=== PATIENT | male | born 1975 | race Caucasian/White ===

== ENCOUNTER 2024-02-21 20:28 | Inpatient (IN) | payer OTHER ==
[2024-02-21] MEDS ORDERED: ACETAMINOPHEN INJECTION 100 ML IVPB ONE (22:20)
[2024-02-21] MEDS: ACETAMINOPHEN 1000 MG/100 ML BAG IVPB ONE (22:23)
[2024-02-21 22:32] LABS: BASO % 0.4 % (0-2.0); HEMATOCRIT 37.6 % (35.4-49); HEMOGLOBIN 13.1 GM/dL (11.7-16.9); LYMPH % 3.5 % (8-40); MCH 29.6 pg (25.7-33.7); MCHC 34.8 g/dl (32.0-35.9); MEAN PLT VOLUME 8.7 fl (7.5-11.1); NEUT % 87.1 % (42.8-82.8); PLATELET COUNT 279 10^3/uL (134-434); RBC 4.43 M/mm3 (4.00-5.60); RDW 13.8 % (11.9-15.9); WHITE BLOOD COUNT 13.7 K/mm3 (4.0-10.0)
[2024-02-21 22:34] LABS: EPI CELLS 11 /uL (0-25.1); HYALINE CASTS 13 /uL (0-3.1); URINE APPEARANCE CLOUDY; URINE BACTERIA >9,000 /uL (0-1359); URINE BILIRUBIN 1+ (NEGATIVE); URINE COLOR DK YELLOW; URINE GLUCOSE (UA) NEGATIVE (NEGATIVE); URINE KETONE TRACE (NEGATIVE); URINE LEUK ESTERASE 1+ (NEGATIVE); URINE NITRITE POSITIVE (NEGATIVE); URINE PROTEIN 2+ (NEGATIVE); URINE RBC 45 /uL (0-23.9); URINE UROBILINOGEN 4.0 E.U/dl mg/dL (0.2-1.0); URINE WBC 189 /uL (0-25.8)
[2024-02-21 22:37] LABS: INR 1.37 (0.83-1.09); PROTHROMBIN TIME (PATIENT) 15.3 SEC (9.7-13.0)
[2024-02-21 22:49] LABS: POTASSIUM 3.8 mmol/L (3.5-5.1)
[2024-02-21 22:52] LABS: ALBUMIN 3.1 g/dl (3.4-5.0); BLOOD UREA NITROGEN 9.2 mg/dL (7-18)
[2024-02-21 22:54] LABS: CREATININE 0.7 mg/dL (0.55-1.3)
[2024-02-21 22:56] LABS: BILIRUBIN,TOTAL 0.7 mg/dL (0.2-1); TOT PROT 7.3 g/dl (6.4-8.2)
[2024-02-22] MEDS ORDERED: MORPHINE SULFATE 2 MG/ML SYRINGE ONE (03:45)
[2024-02-22] MEDS: MORPHINE SULFATE 2 MG/ML SYRINGE IVPUSH PRN (04:02)
[2024-02-22] MEDS ORDERED: ACETAMINOPHEN 325 MG TABLET (FP) ONE (04:03)
[2024-02-22] MEDS: ACETAMINOPHEN 325 MG TABLET (FP) PO PRN (04:07)
[2024-02-22 06:34] LABS: POTASSIUM 3.7 mmol/L (3.5-5.1)
[2024-02-22 06:38] LABS: CALCIUM 8.2 mg/dL (8.5-10.1)
[2024-02-22 06:39] LABS: ALBUMIN 3.1 g/dl (3.4-5.0); BLOOD UREA NITROGEN 8.3 mg/dL (7-18)
[2024-02-22] MEDS: INSULIN ASPART SLIDING SCALE (NOVOLOG) 1 VIAL SQ SCH (06:39)
[2024-02-22 06:42] LABS: CREATININE 0.6 mg/dL (0.55-1.3); PHOSPHOROUS 3.8 mg/dL (2.5-4.9)
[2024-02-22 06:43] LABS: BILIRUBIN,TOTAL 0.8 mg/dL (0.2-1); TOT PROT 7.5 g/dl (6.4-8.2)
[2024-02-22 07:28] LABS: BASO % 0.1 % (0-2.0); HEMATOCRIT 38.9 % (35.4-49); HEMOGLOBIN 13.4 GM/dL (11.7-16.9); LYMPH % 2.5 % (8-40); MCH 29.2 pg (25.7-33.7); MCHC 34.4 g/dl (32.0-35.9); MEAN CELL VOLUME 84.9 fl (80-96); MEAN PLT VOLUME 8.1 fl (7.5-11.1); NEUT % 89.4 % (42.8-82.8); PLATELET COUNT 203 10^3/uL (134-434); RBC 4.58 M/mm3 (4.00-5.60); RDW 13.7 % (11.9-15.9); WHITE BLOOD COUNT 20.1 K/mm3 (4.0-10.0)
[2024-02-22 09:35] LABS: ANISOCYTOSIS 0; MACROCYTOSIS 0
[2024-02-22 09:39] LABS: PLATELET ESTIMATE ADEQUATE
[2024-02-22] MEDS: ENOXAPARIN NA (PORCINE) 40 MG/0.4 ML DISP.SYRIN SQ SCH (11:05)
[2024-02-22 13:31] VITALS: PULSE 72; BMI 25.9
[2024-02-22 15:49] VITALS: BP 126/76; RESP 18; TEMP 98.6
[2024-02-22] MEDS ORDERED: CEFTRIAXONE 1 GM in DEXTROSE 5%-WATER - 50 ML IVPB SCH (22:00)
== END 2024-02-22 19:43 | disposition home or self-care (01) | DRG 501 ==
LOC: JER 20:28 → JERBED 23:24 → OBSVTOIN 02-22 02:31 → J8W 02-22 09:04
PROVIDERS: ADMIT Internal Medicine; ATTEND Internal Medicine
DX: N45.1 Epididymitis (principal); R73.9 Hyperglycemia, unspecified; N50.82 Scrotal pain; R31.9 Hematuria, unspecified; F12.90 Cannabis use, unspecified, uncomplicated
CPT/HCPCS: 36415; 76870-TC; 80053; 81003; 82962; 83605; 83735; 84100; 85025; 85610; 86780; 86850; 86900; 86901; 87086; 87186; 87491; 87591; 87661; 93005; 93010; 99285-25; G0378; J0131